=== PATIENT | male | born 1975 | race Caucasian/White ===

== ENCOUNTER → 2025-06-16 12:24 | Outpatient (REF) | payer BC, SELFPAY ==
[2025-06-16 14:09] LABS: Hematocrit 42.8 % (39.0-52.0); Hemoglobin 15.1 g/dL (13.0-18.0); Mean Corp Hgb Conc. 35.3 g/dL (33.0-37.0); Mean Corpuscular Volume 89.0 fL (80.0-94.0); Nucleated Red Blood Cells % 0 % (-); Platelet Count 274 10^3/uL (130-400); Red Cell Dist. Width 12.5 % (11.5-14.5)
[2025-06-16 14:58] LABS: Vitamin D, 25-OH*** 21.3 ng/mL (30-80)
[2025-06-16 15:06] LABS: ALT (SGPT) 27 U/L (0-50); AST (SGOT) 24 U/L (17-59); Albumin 4.7 g/dl (3.5-5.0); Alkaline Phosphatase 90 U/L (38-126); Blood Urea Nitrogen 8 mg/dl (9-20); Calcium 9.4 mg/dl (8.4-10.2); Carbon Dioxide 25 mmol/L (22-30); Chloride 96 mmol/L (98-107); Glucose 178 mg/dl (70-99); HDL Cholesterol 35 mg/dl; LDL Cholesterol, Calculated 100 mg/dl; Potassium 4.1 mmol/L (3.5-5.1); Sodium 132 mmol/L (135-145); Total Protein 7.6 g/dl (6.3-8.2); Very Low Density Lipoprotein 36 mg/dl (0-30); eGFR > 60.00
[2025-06-16 15:38] LABS: Vitamin B12 571 pg/ml (239-931)
[2025-06-17 08:51] LABS: Glycohemoglobin (HgbA1c) 10.0 % (4.0-5.9)
== END ==
LOC: RAD 12:24
PROVIDERS: FAMILY PHYSICIAN Family Medicine
DX: R22.42 Localized swelling, mass and lump, left lower limb (principal); R53.83 Other fatigue
CPT/HCPCS: 36415; 76882; 80053; 80061; 82306; 82607; 83036; 84443; 85025